=== PATIENT | female | born 1970 | race Caucasian/White ===

== ENCOUNTER 2021-01-03 01:59 | Inpatient (IN) | payer OTHER ==
[2021-01-03] VITALS (76 sets, daily range): BP systolic 53–162; BP diastolic 35–100
[~2021-01-03] VITALS: Ht 162.6 cm; Wt 63.0 kg
[2021-01-03 04:51] LABS: HCO3 23.6 mmol/L (22.0-26.0); PCO2 38.6 mmHg (35.0-45.0); pH 7.404 (7.360-7.450); sO2 99.3 % (92.0-98.0)
[2021-01-03 07:41] LABS: ABSOLUTE NEUTROPHILS 8.1 thou/uL (1.4-8.2)
[2021-01-03 07:43] LABS: BASOPHILS 0.2 % (0.0-2.0); LYMPHOCYTES 9.6 % (24.0-44.0); MCH 28.6 pg (26.0-34.0); MCHC 32.5 g/dL (28.0-37.0); MCV 87.9 fL (80.0-100.0); MONOCYTES 8.5 % (1.0-8.0); PLATELET COUNT 318 thou/uL (150-400); POLYS 81.7 % (36.0-66.0); RBC 2.16 mil/uL (4.20-5.00); RDW 16.5 % (10.5-14.5); WBC 9.9 thou/uL (4.0-11.0)
[2021-01-03 07:51] LABS: CALCIUM 7.3 mg/dL (8.5-10.1); POTASSIUM 3.4 mmol/L (3.5-5.1)
[2021-01-03 07:56] LABS: ALBUMIN 1.6 g/dL (3.4-5.0); TOTAL BILIRUBIN 0.3 mg/dL (0.2-1.0)
[2021-01-03 08:02] LABS: HEMOGLOBIN 6.2 gm/dL (12.0-15.0)
[2021-01-03 08:30] LABS: APTT 39.3 Seconds (24.5-32.8); INR 1.31; PROTIME 14.1 Seconds (10.5-12.1)
--- NOTE | 2021-01-03 08:55 | NUR ---
Spome to Alex Sandra, patient's son, regarding patient's condition and plan of care. Obtained consent for central line placement and blood transfusion.
--- NOTE | 2021-01-03 11:01 | EKG ---
[place] [address] [facility] [place] [address] ELECTROCARDIOGRAM REPORT Name: NEHAL WHITE Room #: 238-P ADM IN M.R.#: [id number] Admission: 01/03/21 Attend Phys: Dahiana Turpin Discharge: Date of : 70 Report #: [id number] [facility] Test Date: 2021-01-03 Test Time: 10:32:05 Pat Name: NEHAL WHITE Department: Room: 238 P Gender: F Control Systems Technician: efrain : 1970 Requested By: Venkatesh Blue Order Number: [id number] MD: Mateus Rai Measurements Intervals [place] Rate: 70 P: 67 WA: 170 QRS: 70 QRSD: 93 T: 60 QT: 436 QTc: 471 Interpretive Statements Sinus rhythm Low voltage, precordial leads Consider RVH w/ secondary repol abnormality No previous ECG available for comparison Electronically Signed On 01-03-2021 11:00:42 CDT by Mateus Rai [email or web address] <ELECTRONICALLY SIGNED> By: Mateus Rai MD, [facility] 01/03/21 1100 1032 31 Mateus Rai MD, FACC /EPI
[2021-01-03 11:58] LABS: HCO3 23.2 mmol/L (22.0-26.0); PO2 78.6 mmHg (80.0-100.0); pH 7.427 (7.360-7.450)
[2021-01-03 12:23] LABS: FOLIC ACID 6.9 ng/mL (8.6-58.9)
--- NOTE | 2021-01-03 12:24 | NUR ---
A #6F TRIPLE LUMEN CENTRAL LINE WAS PLACED PER HOSPITAL POLICY AFTER A BEDSIDE TIMEOUT WAS COMPLETED. THE LEFT SIDE HAS A EJ AND THE RIGHT NOTED TO HAVE PUNTURE GOODWIN FROM A ? PRIOR CENTRAL LINE ATTEMPT? THE 25CM LINE WAS ADVANCED TO 7CM EXTERNAL. THE LINE ADVANCED WITHOUT DIFFICULTY. A STAT CHEST XRAY CONFIRMED LINE IN THE LOWER SVC. LINE RELEASED FOR USE
--- NOTE | 2021-01-03 12:43 | 2DMMODE ---
[facility] [place] [address] 2 D/M-MODE ECHOCARDIOGRAM Name: NEHAL WHITE Room #: 238-P ADM IN M.R.#: [id number] Admission: 01/03/21 Attend Phys: Dahiana Turpin Discharge: Date of : 70 Report #: [id number] THIS REPORT FOR: cc: NO FAMILY PHYSICIAN or PCP NO FAMILY PHYSICIAN or PCP Mateus Rai MD [facility] ~ ADDENDUM APPROVED REPORT Study performed: 01/03/2021 10:49:50 EXAM: Limited 2D, Doppler, and color-flow Echocardiogram Patient Location: ICU Room #: 238 Status: routine BSA: 1.65 HR: 72 bpm BP: 125/90 mmHg Rhythm: NSR Indications COVID + patient. Respiratory failure. Right heart function. 2D Dimensions RVDd: 41.37 mm Aortic Valve AoV Peak Bobo.: 1.85 m/s AO Peak Gr.: 13.63 mmHg Tricuspid Valve TR Peak Bobo.: 4.56 m/s RAP Estimate: 15.00 mmHg TR Peak Gr.: 83.06 mmHg PA Pressure: 98.00 mmHg Left Ventricle The left ventricle is normal size. Paradoxical septal motion consistent with right ventricular pressure/volume overload. There is normal left ventricular wall thickness. Left ventricular systolic function is normal. LVEF is 5560 %. This study is not technically sufficient to allow evaluation of the LV diastolic function. Right Ventricle Right ventricle is mildly dilated. Right ventricle is mildly hypokinetic. [facility] [address] [place] [address] 2 D/M-MODE ECHOCARDIOGRAM Name: NEHAL WHITE Room #: 238-P ADM IN M.R.#: [id number] Admission: 01/03/21 Attend Phys: Dahiana Oropeza Discharge: Date of : 70 Report #: [id number] [place] Left atrium is dilated. Right atrium is at the upper limits of normal. Aortic Valve Aortic valve is midly calcified. Trace aortic regurgitation. There is no aortic valvular stenosis. Mitral Valve Restricted mitral valve opening. (Peak gradient of 26mmHg; mean of 12mmHg). Moderate mitral stenosis. Mild mitral regurgitation. Tricuspid Valve The tricuspid valve is normal in structure. Moderate to severe tricuspid regurgitation. Severe pulmonary hypertension. Estimated PAP is 95mmHg. Pulmonic Valve Great Vessels The aortic root is normal in size. IVC is dilated and collapses <50% with inspiration. Pericardium Trivial pericardial effusion. Right pleural effusion noted. <Conclusion> Normal left ventricle size/wall thickness Ejection fraction 60% Right ventricle mildly dilated/hypokinetic Mild left atrial enlargement Color-flow Doppler study was performed of the aortic/mitral/tricuspid/pulmonary valve Aortic valve mildly sclerotic, no stenosis Mild mitral valve insufficiency Mitral valve thickened, myxomatous Moderate mitral valve stenosis, mean gradient of 12 mmHg Mitral annular calcification Moderatesevere tricuspid valve insufficiency Severe pulmonary hypertension PA pressure estimated at 95 mmHg No pericardial effusion [facility] [address] [place] [address] 2 D/M-MODE ECHOCARDIOGRAM Name: CHRISTOPHERNEHAL Room #: 238-P ADM IN M.R.#: [id number] Admission: 01/03/21 Attend Phys: Dahiana Oropeza Discharge: Date of : 70 Report #: [id number] Normal aortic root size moderately dilated IVC but responsive to respiration <ELECTRONICALLY SIGNED> By: Mateus Rai MD, FACC 01/03/21 1243 42 42 Mateus Rai MD, FACC /INF
--- NOTE | 2021-01-03 15:09 | NUR ---
chart review. Discussed during los with hospitalist and unit rounds with Pulmonary MD. She on vent, nutritional support. From [place], [place]. Covid isolation. On IV gtts. CM spoke with her sig other onel via phone call. Live in house, both are disabled, she had 2nd right hip replacement 2 weeks ago. has steps, has ramp, wheelchair, and walker. Independent when she is ok but sometime, she needs help. Manage own medication. Not driven in a while. Had hh in past after her 1st hip. Also had neck surgery 4 or 5 years ago, with neck cage in place. Not had the covid vaccine. per sig other onel. Son efren lives [place] from [place] and has his own business. PCP is Dr [place] with [facility]. Will cont. following as needed. No anticipated dc over the weekend.
[2021-01-03 18:30] LABS: HEMATOCRIT 26.2 % (37.0-47.0)
[2021-01-03 18:31] LABS: HEMOGLOBIN 8.7 gm/dL (12.0-15.0)
[2021-01-04] VITALS (93 sets, daily range): BP systolic 79–168; BP diastolic 50–88
[2021-01-04 01:06] LABS: GLYCOHEMOGLOBIN (HGB A1C) 5.9 % (4.8-5.6)
[2021-01-04 05:06] LABS: BE(vivo) -4.4 mmol/L (-2 to +3); HCO3 19.7 mmol/L (22.0-26.0); PCO2 32.8 mmHg (35.0-45.0); PO2 82.4 mmHg (80.0-100.0); pH 7.397 (7.360-7.450); sO2 96.2 % (92.0-98.0)
[2021-01-04 06:33] LABS: ABSOLUTE NEUTROPHILS 7.9 thou/uL (1.4-8.2); BASOPHILS 0.1 % (0.0-2.0); EOSINOPHILS 0.1 % (0.0-3.0); HEMATOCRIT 29.1 % (37.0-47.0); HEMOGLOBIN 9.4 gm/dL (12.0-15.0); MCH 27.7 pg (26.0-34.0); MCHC 32.2 g/dL (28.0-37.0); MONOCYTES 3.1 % (1.0-8.0); PLATELET COUNT 376 thou/uL (150-400); POLYS 85.7 % (36.0-66.0); RBC 3.39 mil/uL (4.20-5.00); WBC 9.2 thou/uL (4.0-11.0)
[2021-01-04 06:39] LABS: CALCIUM 7.3 mg/dL (8.5-10.1); CREATININE 0.8 mg/dL (0.6-1.0); MAGNESIUM 1.6 mg/dL (1.8-2.4); POTASSIUM 3.5 mmol/L (3.5-5.1)
[2021-01-04 06:45] LABS: ALBUMIN 1.7 g/dL (3.4-5.0); DIRECT BILIRUBIN 0.1 mg/dL (<0.1-0.2); TOTAL BILIRUBIN 0.3 mg/dL (0.2-1.0)
--- NOTE | 2021-01-04 08:33 | HC ---
[facility] [place] [address] CONSULTATION Name: NEHAL WHITE Room #: 238-P ADM IN M.R.#: [id number] Admission: 01/03/21 Attend Phys: Dahiana Turpin Discharge: Date of : 70 Report #: [id number] THIS REPORT FOR: cc: NO FAMILY PHYSICIAN or PCP NO FAMILY PHYSICIAN or PCP Des Bailey MD ~ DATE OF SERVICE: 01/03/2021 INFECTIOUS DISEASE CONSULTATION ATTENDING PHYSICIAN: Dr. Turpin. REASON FOR EVALUATION: COVID-19 infection complicated by pneumonitis and respiratory failure. HISTORY OF PRESENT ILLNESS: Chart reviewed. The patient examined. This is a 50-year-old woman with history of hypertension, who recently underwent a revision of her total hip arthroplasty. She was found to be slow to respond postop, was essentially hospitalized roughly 15 days. She was discharged to home, subsequently was found to be unresponsive with pO2 in the 50s. She was referred back and subsequently life-flighted to this hospital for ongoing treatment for respiratory failure. She is currently on ventilatory support. She is nonresponsive. Initial ABG showed pH 7.404, pCO2 of 38.6, pO2 186.0 and that was on FiO2 of 50%. Chest x-ray showed bilateral infiltrates. Creatinine was 1.6. Hemoglobin was 6.2. Ferritin was markedly elevated at ____. Procalcitonin 170.61. Venous Doppler showed no evidence of DVTs. She has required low dose pressor support at this point with norepinephrine. She is nonresponsive, empirically started on therapy with Zosyn, remdesivir, vancomycin as well as corticosteroids. ALLERGIES: LISTED TO CEPHALEXIN. CURRENT MEDICATIONS: Include cholecalciferol, thiamine, vancomycin, Zosyn, insulin sliding scale, methylprednisolone, pantoprazole, norepinephrine, fentanyl, propofol and Versed drips. PAST MEDICAL HISTORY: Right total hip arthroplasty, hypertension. FAMILY HISTORY: Not available. REVIEW OF SYSTEMS: Not obtainable. PHYSICAL EXAMINATION: GENERAL: She appears chronically ill and older than her stated age. She is sedated, appears quite pale, moderate distress. VITAL SIGNS: Temperature 98.4, pulse 70, respirations 20, blood pressure [facility] [address] [place] [address] CONSULTATION Name: NEHAL WHITE Room #: 238-P [facility] IN .R.#: [id number] Admission: 01/03/21 Attend Phys: Dahiana Turpin Discharge: Date of : 70 Report #: [id number] 118/91. SKIN: Warm. HEENT: ET, OG tube in place. Central venous catheter bilaterally. LUNGS: Scattered coarse breath sounds. HEART: Appears to be regular. I do not appreciate any murmur. ABDOMEN: Somewhat distended, mildly firm. No peritoneal signs. GENITOURINARY AND RECTAL: Deferred. LABORATORY DATA: Echo, EF of 60%. Right ventricle mildly dilated and hypokinetic, moderate mitral valve stenosis, moderate to severe tricuspid valve insufficiency, severe pulmonary hypertension. Follow up ABGs: pH 7.427, pCO2 of 36, pO2 of 78.6, FiO2 of 30%. Chest x-ray as described above, bilateral infiltrates. Sed rate 63. ASSESSMENT AND PLAN: 1. COVID-19 infection, complicated by pneumonitis, respiratory failure with acute respiratory distress syndrome. 2. Cardiac ischemia. 3. Apparently longstanding pulmonary hypertension with valvular heart disease. 4. Hypertension. We will continue empiric therapy at this point with higher procalcitonin can exclude a sepsis with shock. It is difficult to ascertain whether this is primary COVID or if there is a secondary bacterial infectious etiology as well. We will continue remdesivir, corticosteroids. Continue supportive care as required with ICU level therapy. Her prognosis appears guarded. <ELECTRONICALLY SIGNED> By: Des Bailey MD 01/04/21 0833 1627 [id number] Des Bailey MD /nt
--- NOTE | 2021-01-04 12:41 | NUR ---
Patient's son, Alex, called and updated on patient condition. Patient currently doing a CPAP trial on the ventilator. Reminded to stay calm. Pt tolerating well at this time.
[2021-01-04 13:08] LABS: BE(vivo) -2.7 mmol/L (-2 to +3); HCO3 21.5 mmol/L (22.0-26.0); PCO2 34.8 mmHg (35.0-45.0); pH 7.408 (7.360-7.450); sO2 97.4 % (92.0-98.0)
[2021-01-05] VITALS (28 sets, daily range): BP systolic 88–150; BP diastolic 59–91
--- NOTE | 2021-01-05 00:28 | NUR ---
Discussed vanco through with Dariusz, pharmacist at 0028. Okay to give scheduled 2300 doseage.
[2021-01-05 04:35] LABS: HEMATOCRIT 27.6 % (37.0-47.0); HEMOGLOBIN 8.9 gm/dL (12.0-15.0); MCH 27.9 pg (26.0-34.0); MCHC 32.3 g/dL (28.0-37.0); MCV 86.6 fL (80.0-100.0); RBC 3.19 mil/uL (4.20-5.00); RDW 18.4 % (10.5-14.5); WBC 8.5 thou/uL (4.0-11.0)
[2021-01-05 05:06] LABS: ALBUMIN 1.5 g/dL (3.4-5.0); ANION GAP 7 mmol/L (7-16); BUN 13 mg/dL (7-18); CALCIUM 7.2 mg/dL (8.5-10.1); CHLORIDE 109 mmol/L (98-107); CO2 26 mmol/L (21-32); CREATININE 0.9 mg/dL (0.6-1.0); DIRECT BILIRUBIN < 0.1 mg/dL (<0.1-0.2); GLUCOSE 182 mg/dL (74-106); PHOSPHORUS 2.1 mg/dL (2.6-4.7); POTASSIUM 3.4 mmol/L (3.5-5.1); SGOT 20 U/L (15-37); SGPT 20 U/L (14-59); SODIUM 142 mmol/L (136-145); TOTAL BILIRUBIN 0.3 mg/dL (0.2-1.0); TOTAL PROTEIN 5.1 g/dL (6.4-8.2)
--- NOTE | 2021-01-05 08:49 | NUR ---
0848HRS - PT WAS ASK WHO WHOULD SHE LIKE TO HAVE US NOTIFIED OF HER STATUS, CONDITION, AND UPDATES IN HER CARE. PT REPORTED HER . PT WAS ASK IF SHE IS STILL TO HER . PT RESPONDED, "YES" AND NODDED UP AND DOWN. PT WAS THEN TOLD THAT WITH HER PERMISSION THAT WE WILL ONLY BE REPORTING TO HER AND NO OTHER FAMILY MEMBER. PT AGAIN NODDED UP AND DOWN AND SAID, "YES". PT WAS THEN ASKED DOES SHE UNDERSTAND THAT WE WILL ONLY BE TALKING TO HER DURING HER CARE HERE AT [facility] ICU. PT RESPONDED, "YES".
[2021-01-06] VITALS (20 sets, daily range): BP systolic 115–155; BP diastolic 64–86
[2021-01-06 04:11] LABS: DIRECT BILIRUBIN < 0.1 mg/dL (<0.1-0.2)
[2021-01-06 04:14] LABS: ALBUMIN 1.6 g/dL (3.4-5.0); CALCIUM 7.5 mg/dL (8.5-10.1); CREATININE 0.9 mg/dL (0.6-1.0); POTASSIUM 3.3 mmol/L (3.5-5.1); TOTAL BILIRUBIN 0.2 mg/dL (0.2-1.0); TOTAL PROTEIN 5.2 g/dL (6.4-8.2)
[2021-01-06 04:35] LABS: ABSOLUTE NEUTROPHILS 7.1 thou/uL (1.4-8.2); BASOPHILS 0.1 % (0.0-2.0); HEMATOCRIT 26.3 % (37.0-47.0); HEMOGLOBIN 8.8 gm/dL (12.0-15.0); LYMPHOCYTES 10.6 % (24.0-44.0); MCH 28.9 pg (26.0-34.0); MCHC 33.3 g/dL (28.0-37.0); MCV 86.9 fL (80.0-100.0); MONOCYTES 3.2 % (1.0-8.0); PLATELET COUNT 395 thou/uL (150-400); POLYS 86.1 % (36.0-66.0); RBC 3.03 mil/uL (4.20-5.00); RDW 18.3 % (10.5-14.5); WBC 8.2 thou/uL (4.0-11.0)
[2021-01-06 05:19] LABS: INR 1.02; PROTIME 11.1 Seconds (10.5-12.1)
[2021-01-06 08:28] LABS: BE(vivo) -3.2 mmol/L (-2 to +3); HCO3 20.9 mmol/L (22.0-26.0); PCO2 33.7 mmHg (35.0-45.0); PO2 146.8 mmHg (80.0-100.0); sO2 98.9 % (92.0-98.0)
[2021-01-07] VITALS (62 sets, daily range): BP systolic 113–154; BP diastolic 64–963
[2021-01-07 04:47] LABS: BE(vivo) -0.5 mmol/L (-2 to +3); HCO3 23.9 mmol/L (22.0-26.0); PCO2 38.1 mmHg (35.0-45.0); PO2 129.1 mmHg (80.0-100.0); pH 7.415 (7.360-7.450); sO2 98.6 % (92.0-98.0)
[2021-01-07 06:07] LABS: ABSOLUTE NEUTROPHILS 10.1 thou/uL (1.4-8.2); BASOPHILS 0.1 % (0.0-2.0); HEMATOCRIT 28.5 % (37.0-47.0); HEMOGLOBIN 9.5 gm/dL (12.0-15.0); LYMPHOCYTES 7.1 % (24.0-44.0); MCH 28.7 pg (26.0-34.0); MCHC 33.1 g/dL (28.0-37.0); MCV 86.5 fL (80.0-100.0); MONOCYTES 3.3 % (1.0-8.0); PLATELET COUNT 443 thou/uL (150-400); POLYS 89.5 % (36.0-66.0); RDW 17.9 % (10.5-14.5); WBC 11.3 thou/uL (4.0-11.0)
[2021-01-07 06:28] LABS: ALBUMIN 1.8 g/dL (3.4-5.0); ANION GAP 8 mmol/L (7-16); BUN 14 mg/dL (7-18); CALCIUM 7.7 mg/dL (8.5-10.1); CHLORIDE 111 mmol/L (98-107); CO2 27 mmol/L (21-32); CREATININE 0.9 mg/dL (0.6-1.0); DIRECT BILIRUBIN < 0.1 mg/dL (<0.1-0.2); GLUCOSE 170 mg/dL (74-106); POTASSIUM 3.3 mmol/L (3.5-5.1); SGOT 22 U/L (15-37); SGPT 19 U/L (14-59); SODIUM 146 mmol/L (136-145); TOTAL BILIRUBIN 0.3 mg/dL (0.2-1.0); TOTAL PROTEIN 5.4 g/dL (6.4-8.2)
--- NOTE | 2021-01-07 07:34 | NUR ---
ASSUME CARE 1900. PT/VITALS STABLE. HR RUNS LOW DURING SLEEP. SEATION TITRATED TO STABILIZE HR. ASSESSMENT CHARTED. PROGRESSING WELL WITH POC. NO DISRESS NOTED THROUGH THE SHIFT. A/O X 4, SPOMTANEOUSLY WAKES UP. CAN MANAGE TO COMMUNICAE NEEDS. SOFT WRIST RESTRAINTS PREVENT PATIENT FROM PULLING ON MEDICAL DEVICES. PLAN IS TO TRY WEANING PT OFF THE VENT/CPAP TRIALS. WILL CONTINUE TO MONITOR AND FOLLOW WITH POC
--- NOTE | 2021-01-07 15:23 | NUR ---
1515HRS - TF RESIDUALS 25ML
[2021-01-07 17:04] LABS: BE(vivo) 0.5 mmol/L (-2 to +3); PCO2 30.3 mmHg (35.0-45.0); pH 7.499 (7.360-7.450); sO2 98.9 % (92.0-98.0)
[2021-01-07 22:12] LABS: CALCIUM 8.2 mg/dL (8.5-10.1); CREATININE 0.8 mg/dL (0.6-1.0); MAGNESIUM 1.9 mg/dL (1.8-2.4); POTASSIUM 3.1 mmol/L (3.5-5.1)
[2021-01-08] VITALS (35 sets, daily range): BP systolic 119–164; BP diastolic 60–101
[2021-01-08 06:32] LABS: CALCIUM 7.7 mg/dL (8.5-10.1); CREATININE 0.9 mg/dL (0.6-1.0); MAGNESIUM 2.2 mg/dL (1.8-2.4); POTASSIUM 3.4 mmol/L (3.5-5.1); TOTAL BILIRUBIN 0.3 mg/dL (0.2-1.0); TOTAL PROTEIN 5.7 g/dL (6.4-8.2)
--- NOTE | 2021-01-08 08:00 | NUR ---
ASSUME CARE 1900. PT/VITALS STABLE. SR ON MONITOR WHEN AWAKE AND SEDATION AT THE LOWEST RATES. BRADYCARDIA WITH INCREASED SEDATION. TITRATE DRIPS PER HR. A/O X 4 AND COMMUNICATES NEEDS WELL BY WRITING. ADEQUATE URINE OUTPUT. NO BM NOTED. ONETIME RUN OF VTACH NOTED AT THE START OF SHIFT/ELECTROLYTES LEVELS DRAWN AND MG/K REPLACED. NO MORE ARRHYTHMIC EPISODES NOTED. PT SATS ADEQUATELY ON FIO2 AT 35%. ASSESSMENT CHARTED. PROGRESSING WELL WITH POC. PLAN IS FOR PT TO HAVE ANOTHER CPAP TRIAL, TO EVALUATE WHEN PT CAN BE EXTUBATED. WILL CONITUE TO MONITOR AND FOLLOW WITH POC
--- NOTE | 2021-01-08 10:38 | NUR ---
PT ANXIOUS AND COOPERATIVE. PT STATED VIA WHITEBOARD "I'M DONE, PLEASE HELP ME". PT SEDATION - PROPOFOL GTT AND FENTANYL GTT - TURNED OFF AT 0900. PRECEDEX RUNNING STILL. PT STARTED ON CPAP TRIAL AT 0915. PT FELT LIKE SHE WAS CHOKING. RN NOTIFIED RT AT 1035, RT STATED SHE WOULD COME DRAW ABG. WILL CONTINUE TO MONITOR.
--- NOTE | 2021-01-08 10:43 | NUR ---
Nutrition: folate 6.9. REC order folate replacement.
[2021-01-08 10:53] LABS: BE(vivo) 0.9 mmol/L (-2 to +3); HCO3 23.8 mmol/L (22.0-26.0); PCO2 31.9 mmHg (35.0-45.0); PO2 133.7 mmHg (80.0-100.0); pH 7.491 (7.360-7.450); sO2 98.9 % (92.0-98.0)
--- NOTE | 2021-01-08 16:54 | NUR ---
PT EXTUBATED AT 1130. PT TOLERATING WELL ON ROOM AIR. WHEN PATIENT GETS ANXIOUS PT O2 SAT DROPS TO 87-88%. PT HAS GOOD COUGH REFLEX. SMALL AMOUNT OF WHITE SPUTUM.
[2021-01-09] VITALS (16 sets, daily range): BP systolic 115–134; BP diastolic 66–84
--- NOTE | 2021-01-09 08:23 | NUR ---
0700HRS - DRSG TO R SIDE OF NECK INTACT, NO DRAINAGE. REPORTED SELF REMOVING R IJ CVL. 0823HRS - PT IN BED RESTING AND WATCHING TV. ABLE TO SWALLOW PILLS WITH EASE. C/O OF BEING IN THE HOSPITAL AND WANTING TO GO HOME. DENIES HAVING COVID, "[facility] TOLD ME I DON'T HAVE COVID. I DON'T KNOW WHY I'M HERE." PT IN TEARS AND APPEARS SAD. ABLE TO CALL HER BOYFRIEND (LORIN). HEARD DISCUSSING WITH BOYFRIEND WHY SHE IS, VACCINATION, SHE IS "FEELING FINE", WANTING TO GO HOME, AND COME GET HER.
--- NOTE | 2021-01-09 09:26 | NUR ---
0850HRS - PT'S BOYFRIEND CALLED AND ASKED WHY IS THE PT NOT BEING CARED FOR. HE SAID THAT THE PT REPORTED TO HIM OVER THE PHONE THAT SHE WAS NOT BEING CARED FOR, UNABLE TO CALL A NURSE DO TO NOT HAVING A CALL- LIGHT BUTTON, AND THAT SHE "POOPED" ON HERSELF. THIS SENIOR INSTRUCTOR TOLD THE BOYFRIEND THAT I WAS IN THE ROOM AND WAS THE ONE WHO SUGGESTED THAT SHE SHOULD CALL AND ASSIST HER. SINCE SHE IS IN RESTRAINTS, I HAD TO DIAL THE NUMBER FOR HER AND HELD THE PHONE NEXT TO HER HEAR. I ALSO TOLD HIM THAT I HEARD THE CONVERSATION THEY HAD. ALSO, I HAD NOT LEFT HER SIDE. I ALSO TOLD HIM THAT I GAVE HER MORNIN PO MEDICATIONS AND IT WAS CHARTED AND TIMED AND THAT HER CALL LIGHT WAS IN HER HAND THROUGHOUT THE MORNING WITH THE TV ON. PT'S BOYFRIEND WAS UPDATED ON PT'S STATUS AND CONDITION.
--- NOTE | 2021-01-09 09:45 | NUR ---
Noted extubate on 01/08. Discussed during unit am rounds. COVID +, enhanced isolation precaution. Noted through window she was up in bed talking on the phone. Possible transfer out of icu when bed available . Will cont following as needed for dc needs.
--- NOTE | 2021-01-09 09:54 | NUR ---
0910HRS - BM X1, LARGE, FORMED
--- NOTE | 2021-01-09 11:51 | NUR ---
1145HRS - PT UP IN RECLINER ASSISTED BY PT
[2021-01-10] VITALS: BP 107/62
--- NOTE | 2021-01-10 00:44 | NUR ---
PT TRANSFERED TO ROOM 361 WITH BELONGINGS. SIGNIFICANT OTHER, LORIN, AND SON, ERWIN, NOTIFIED OF TRANSFER PLANS AT 6574. REPORT CALLED TO 3 BISHNU RN.
--- NOTE | 2021-01-10 02:06 | NUR ---
PT TRANSFERRED FROM ICU. PT RESTING IN BED. FLAT AFFECT. REMAINS ON ROOM AIR. LUNGS WITH WHEEZES, DIMINISHED IN THE BASES. PALE SKIN TONE. R HIP DRESSING INTACT. BED ALARM ON.
[2021-01-10 04:46] VITALS: BP 98/58
[2021-01-10 08:14] VITALS: BP 132/76
[2021-01-10 09:08] LABS: ALBUMIN 2.3 g/dL (3.4-5.0); CALCIUM 8.2 mg/dL (8.5-10.1); CREATININE 0.7 mg/dL (0.6-1.0); MAGNESIUM 1.6 mg/dL (1.8-2.4); TOTAL BILIRUBIN 0.6 mg/dL (0.2-1.0); TOTAL PROTEIN 6.1 g/dL (6.4-8.2)
[2021-01-10 09:12] LABS: POTASSIUM 2.3 mmol/L (3.5-5.1)
[2021-01-10] MEDS ORDERED: ZOLOFT 50 MG TA50 MG PO (09:55)
[2021-01-10] MEDS ORDERED: PREDNISONE 20 M20 MG PO (09:55)
[2021-01-10] MEDS ORDERED: ASPIRIN EC325 M1 PO (09:56)
--- NOTE | 2021-01-10 11:48 | NUR ---
Pt was transferred to 3 from ICU and has dishcarge orders to go home today. Pt remains in Enhanced Isolation. Pt is not requiring O2. Pt with temp of 100.4 this morning. PT/OT evals have been ordered. JUDY spoke with pt via phone to discuss discharge plan. Pt very tearful stating she needs to talk with her s/o, David, about going home. Pt concerned about transportation home, as they live almost four hours away. JUDY explained that she may not be able to call David from her room, as the phones do not call long distance. SW offered to call David and provide him the phone number into her room. Pt agreeable. JUDY spoke with pt's s/o via phone. Informed David that pt has discharge orders. David states he was unaware of pt being discharged "so soon." David states he has cardiac and other issues and he is concerned about pt coming home and still needing to be in isolation. David also states that he is not able to drive to to come pick pt up. JUDY discussed HH services and post-acute placement if needed. David states that pt can come home and they have used HH in the past. David provided JUDY with info for [facility]. Pt has used them in the past and they would be agreeable with using them this time. Pt's s/o states that pt will need HH, as she will need therapy due to recent hip surgery. Awaiting PT/OT evals at this time. JUDY requested attending physician to contact pt's s/o to provide update and discuss isolation precautions. JUDY spoke with Yasmani in intake at [facility]. Pt has used them in the past. JUDY faxed referral and received confirmation. [facility] will need to verify that pt's PCP is licensed in [place], as his office is in [place]. JUDY updated pt's nurse. Discussed case with Director of Case Mgmt. If pt needs transportation home, [employer] can be contacted, or JUDY will coordinate with [facility]. JUDY is following to assist as needed with discharge planning.
[2021-01-10 13:44] LABS: CALCIUM 8.2 mg/dL (8.5-10.1); CREATININE 0.7 mg/dL (0.6-1.0)
[2021-01-10 13:47] LABS: POTASSIUM 2.5 mmol/L (3.5-5.1)
[2021-01-10 15:50] VITALS: BP 111/57
--- NOTE | 2021-01-10 19:26 | NUR ---
ASSUMED PATIENT CARE AT 0700. A/0 X4. ON RA. UP WITH STANDBY ASSISTED. REPLACED k. NOTED PATIENT DESAT TO 79 ON RA WITH TEMP 102.1. NOTIFIED DR ACEVES AND ID. ORDER RECEIVED. NOT TOWARDS POC GOALS.
[2021-01-10 20:00] LABS: URINE BILIRUBIN NEGATIVE (Negative); URINE BLOOD 1+ (Negative); URINE CLARITY SL CLOUDY; URINE COLOR YELLOW; URINE GLUCOSE-RANDOM* NEGATIVE (Negative); URINE KETONES NEGATIVE (Negative); URINE LEUKOCYTES 1+ (Negative); URINE NITRITE NEGATIVE (Negative); URINE PROTEIN (DIPSTICK) 1+ (Negative); URINE SPECIFIC GRAVITY 1.015 (1.005-1.035)
[2021-01-10 20:16] VITALS: BP 118/68
[2021-01-10 20:25] LABS: SQUAMOUS 0-3 Few /LPF (0-3); URINE RBC 3-10 Few /HPF (NONE SEEN); URINE WBC 6-15 Few /HPF (NONE SEEN)
[2021-01-10 20:26] LABS: BACTERIA 1-9 Few /HPF (None Seen)
--- NOTE | 2021-01-10 23:23 | NUR ---
PT RESTING IN BED. O2 PER NC. LUNGS COARSE. PT CALLS FOR ASSISTANCE FOR AMBULATION TO RESTROOM, PT HAS STEADY GAIT WITH WALKER. R HIP SUTURES INTACT. PRN FOR PAIN PROVIDED. PT ASKING IF SHE WILL GET TO BE DCD TOMORROW SINCE SHE IS NOW ON O2 AND TEMP.
[2021-01-11 04:52] VITALS: BP 121/62
[2021-01-11 05:29] LABS: ALBUMIN 2.1 g/dL (3.4-5.0); CREATININE 0.6 mg/dL (0.6-1.0); PHOSPHORUS 3.2 mg/dL (2.5-4.9); POTASSIUM 3.1 mmol/L (3.5-5.1)
[2021-01-11 07:51] VITALS: BP 137/80
--- NOTE | 2021-01-11 15:09 | NUR ---
JUDY reviewed chart and spoke with nursing and attending physician. Pt remains in Enhanced Isolation due to COVID. Pt has been febrile and requiring O2. Pt is on IV steroids and IV abx. No weekend discharge planned. JUDY placed call to pt's s/o, David. Voice mailbox has not been set up. JUDY spoke with pt via phone to discuss discharge plan. Pt was tearful. Verbalized understanding and is agreeable with discharge plan. Pt states she will update her s/o. JUDY left voice message for [facility] [place] regarding HH referral. Pt will need rest/exercise oximetry completed prior to discharge to determine home O2 needs. Pt will need transportation home when discharged. JUDY is following to assist as needed with discharge planning.
[2021-01-11 15:42] VITALS: BP 122/78
[2021-01-11 20:09] VITALS: BP 125/88
--- NOTE | 2021-01-12 03:07 | NUR ---
PROGRESS PT A/O X4, UP AD ANALI WITH WALKER. MANAGING O2 TUBING WITHOUT DIFFICULTY. UPSET AT START OF SHIFT FELT THE DAY STAFF AND NIGHT INSURANCE SALESPERSON WERE BEING MEAN TO HER. SHE SETTLED DOWN AFTER TALKNG IT OUT WITH ME, AND GETTING PAIN MEDICATION. SUTURES TO RIGHT HIP INTACT WELL APPROXIMATED PT REQUESTED I COVER IT WITH GUAZE LIGHT DRESSING APPLIED. LUNGS DIMINISHED ON 3 LITERS O2, DESATURATED QUICKLY ON DAYS DOWN INTO THE 70'S SO 23 LITERS O2 APPLIED. VOIDING QS DENIES LOOSE STOOLS THIS EVENING. CONTINUE POC.
[2021-01-12 05:20] VITALS: BP 130/71
[2021-01-12 07:21] VITALS: BP 134/81
[2021-01-12 15:14] VITALS: BP 137/79
--- NOTE | 2021-01-12 17:58 | NUR ---
PT ALERT AND ORIENTED X4, DENIES ANY CHEST PAIN, NAUSEA AND VOMITTING. CURRENTLY ON 1L OF OXYGEN. NORCO GIVEN FOR HIP PAIN POST SURGERY. UP TO BATHROOM WITH A WALKER STANDBY. ANTICIPATING FOR D/C SOON. ENNHANCED PREC. CONTINUE TO BE IN PLACE
[2021-01-12 20:20] VITALS: BP 139/8
[2021-01-13 04:00] VITALS: BP 123/71
--- NOTE | 2021-01-13 05:06 | NUR ---
PROGRESS PT A/O X4. UP WITH SBA WALKER AMBULATES TO BATHROOM WITH OXYEN TOLERAES WELL. ABLE TO MANAGE EQUIPMENT WITHOUT DIFFICULTY. LUNGS SOUNDS WITH SCATTERED COARSENESS UPPER LOBES AND DIMINISHED IN BASES. ON 2 LITERS O2 SATS IN MID 90'S. ON ROOM AIR DESAS TO 8 BUT REBOUNDS QUICKLY ONCE O2 REAPPLIED. PT IN BETTER MOOD THIS SHIFT NOT TEARFUL OR ANGRY. HYDROCODONE AND VALIUM GIVEN FOR RIGHT HIP PAIN WITH EFECT PT SLEPT MOST OF SHIFT. IV ABT' GIVEN ORDERED, PT VOIDING QS AND HAS ADEQUATE PO INTAKE.
[2021-01-13 07:47] VITALS: BP 121/85
[2021-01-13 13:58] LABS: CALCIUM 8.7 mg/dL (8.5-10.1); CREATININE 0.8 mg/dL (0.6-1.0)
[2021-01-13 15:43] VITALS: BP 119/84
--- NOTE | 2021-01-13 16:18 | NUR ---
PT IS CURRENTLY ON 1L OF OXYGEN, 1L AT MOMENT. UP TO BATHROOM WITH A WALKER. ANTICIPATING FOR D/C TOMORROW. PT I PROGRESSING TOWARDS CARE.
[2021-01-13 20:31] VITALS: BP 116/75
--- NOTE | 2021-01-14 03:27 | NUR ---
PROGRESS PT A/O X4 UP AD ANALI TO BSC. ON ROOM AIR SATS IN MID 90'S NO RESPIRATORY DISTRESS NOTED. PT EXPECTS TO BE DISCHARGED HOME TODAY IS WORRIED ABOUT FINDING SOME CLOTHES TO WEAR HOME. VSS. CONTINUE TO MONITOR.
[2021-01-14 05:17] VITALS: BP 140/79
[2021-01-14 07:50] VITALS: BP 126/77
[2021-01-14] MEDS ORDERED: LEVOFLOXACIN500 MG PO (11:11)
[2021-01-14 12:44] VITALS: BP 126/77
--- NOTE | 2021-01-14 14:12 | NUR ---
DISCHARGE NOTE: JUDY reviewed chart and spoke with nursing and attending physician. Pt remains in Enhanced Isolation due to COVID. Discharge ppwk completed by attending physician. Pt is on room air. JUDY spoke with pt via phone to discuss discharge plan. Pt is aware and agreeable with discharge plan. Pt states she does not have clothes and will need clothes for the ride home. JUDY discussed HH services. Pt has used [facility] in the past and would like to use them again. JUDY confirmed pt's home address and phone number. Pt's PCP is Dr. Kemp with [facility] ([phone]). JUDY spoke with Yasmani in intake at , who states they are able to provide HH, as long as Dr. Kemp will follow for orders. HH to confirm with Dr. Kemp. JUDY requested HH orders from attending physician. Pt needing transportation home, as her s/o is unable to drive and family is not able to assist. JUDY contacted [employer], who is not able to provide long-distance transportation today. JUDY arranged stretcher van transportation through [employer]. Trip # [id number] provided. Transportation to arrive between [id number]. JUDY updated pt via phone. JUDY spoke with pt's s/o, David, via phone to provide update and notify of discharge timeframe. David is aware and agreeable with discharge plan. Contact info for HH placed in pt's discharge summary. No additional SW needs identified at this time, but is available to assist should needs arise.
== END 2021-01-14 15:43 | disposition home health service (06) | DRG 870 ==
LOC: ICU 01:59 → 3W 04:18 → ICU 04:18 → 3W 01-10 01:45
PROVIDERS: Internal Medicine Pulmonary Disease; Nurse Practitioner; Nurse Practitioner Family; Pediatrics; Specialist; ADMIT Hospitalist; ATTEND Hospitalist
DX: A41.9 Sepsis, unspecified organism (principal); U07.1 COVID-19; J12.82 Pneumonia due to coronavirus disease 2019; E43 Unspecified severe protein-calorie malnutrition; R65.21 Severe sepsis with septic shock; J80 Acute respiratory distress syndrome; I42.9 Cardiomyopathy, unspecified; I38 Endocarditis, valve unspecified; J91.8 Pleural effusion in other conditions classified elsewhere; J93.9 Pneumothorax, unspecified; Z88.8 Allergy status to other drugs, medicaments and biological substances; D64.9 Anemia, unspecified; I27.20 Pulmonary hypertension, unspecified; I10 Essential (primary) hypertension; E11.65 Type 2 diabetes mellitus with hyperglycemia; Z96.641 Presence of right artificial hip joint; J98.2 Interstitial emphysema; Z79.82 Long term (current) use of aspirin; Z79.899 Other long term (current) drug therapy
CPT/HCPCS: 10078; 10779; 85076